=== PATIENT | female | born 1985 | race Caucasian/White ===

== ENCOUNTER 2019-10-02 09:42 | Emergency (ER) | payer MEDICARE ==
[~2019-10-02] VITALS: Ht 175.3 cm; Wt 81.7 kg
[~2019-10-02 09:42] MED LIST: ALPR0.25 PO; CALC200T3 PO; LEVO112T4 PO; OXYC5CAP2 PO
[2019-10-02 09:49] VITALS: BP 130/61
[2019-10-02 11:40] LABS: BASOPHILS # (AUTO) 0.09 x10^3/uL (0-0.1); BASOPHILS % (AUTO) 1 % (0-1); EOSINOPHILS # (AUTO) 0.02 x10^3/uL (0-0.4); EOSINOPHILS % (AUTO) 0 % (1-7); LYMPHOCYTES # (AUTO) 1.17 x10^3/uL (1-3.4); LYMPHOCYTES % (AUTO) 10 % (22-44); MD NO; MEAN CORPUSCULAR HEMOGLOBIN 30.5 pg (27.0-34.8); MEAN CORPUSCULAR VOLUME 92.3 fL (80-100); MEAN PLATELET VOLUME 6.9 fL (7.4-10.4); MONOCYTES # (AUTO) 0.63 x10^3/uL (0.2-0.8); MONOCYTES % (AUTO) 5 % (2-9); NEUTROPHILS # (AUTO) 10.13 x10^3/uL (1.8-6.8); NEUTROPHILS % (AUTO) 84 % (42-75); PLATELET COUNT 324 x10^3/uL (130-400); RED BLOOD COUNT 3.94 x10^6/uL (3.82-5.3)
== END 2019-10-02 12:06 | disposition home or self-care (01) ==
LOC: ED 11:20
DX: R04.0 Epistaxis (principal); Z87.891 Personal history of nicotine dependence
CPT/HCPCS: 36415; 85025; 99283

== ENCOUNTER 2019-10-08 08:57 | Day surgery (SDC) | payer MEDICARE ==
[~2019-10-08] VITALS: Ht 175.3 cm; Wt 80.1 kg
[2019-10-08] MEDS ORDERED: BACITRACIN OINT 500U/GM, 15 GM ONE (09:44)
[2019-10-08] MEDS ORDERED: FLUORESCEIN SODIUM 500 MG/5 ML ONE (09:44)
[2019-10-08] MEDS ORDERED: OXYMETAZOLINE NASAL SPRAY 0.05%, 15ML ONE (09:44)
[2019-10-08] MEDS ORDERED: LIDOCAINE 1%-EPI 1:100K, 20ML ONE (09:44)
[2019-10-08] MEDS ORDERED: EPINEPHRINE TOPICAL SOLN 1 MG/ML, 30ML ONE (09:44)
[2019-10-08] MEDS ORDERED: MIDAZOLAM 1 MG/ML, 2ML ONE (09:51)
[2019-10-08] MEDS ORDERED: CEFAZOLIN 1,000 MG ONE (10:20)
[2019-10-08] MEDS ORDERED: ROCURONIUM 10MG/ML,5ML ONE (10:20)
[2019-10-08] MEDS ORDERED: PROPOFOL 10 MG/ML, 20ML ONE (10:20)
[2019-10-08] MEDS ORDERED: SUCCINYLCHOLINE 20 MG/ML, 10ML ONE (10:20)
[2019-10-08] MEDS ORDERED: ONDANSETRON 2MG/ML, 2ML ONE (10:20)
[2019-10-08] MEDS ORDERED: DEXAMETHASONE 4 MG/ML, 1ML ONE (10:20)
--- NOTE | 2019-10-08 10:22 | NUR ---
pt presents to ED with c/o intermittent nosebleed x 3 weeks, prsent since sinus surgery 3 weeks ago. pt was instructed by ENT [place] to present to ED for admit to OR for repair. pt notes left ear pain 9/10 on arrival. Epitasis present on arrival. PIV placed to right ac by task RN Baldev. Pt seen by MD Duran in ED. After PIV placement, repeat bp was 85/58, HR 100-110s sinus tach. anthestesiologist and [employer] notified of BP recheck and trend. Pt a&o, rsps even and unlabored, present with pt upon transport to OR.
[2019-10-08 10:46] LABS: BASOPHILS # (AUTO) 0.03 x10^3/uL (0-0.1); BASOPHILS % (AUTO) 0 % (0-1); EOSINOPHILS # (AUTO) 0.07 x10^3/uL (0-0.4); EOSINOPHILS % (AUTO) 1 % (1-7); HEMOGRAM NOTE RECHECKED; LYMPHOCYTES # (AUTO) 1.52 x10^3/uL (1-3.4); LYMPHOCYTES % (AUTO) 18 % (22-44); MD NO; MEAN CORPUSCULAR HEMOGLOBIN 31.7 pg (27.0-34.8); MEAN CORPUSCULAR HGB CONC 34.2 g/dL (32.4-35.8); MEAN CORPUSCULAR VOLUME 92.5 fL (80-100); MEAN PLATELET VOLUME 7.1 fL (7.4-10.4); MONOCYTES # (AUTO) 0.51 x10^3/uL (0.2-0.8); MONOCYTES % (AUTO) 6 % (2-9); NEUTROPHILS % (AUTO) 75 % (42-75); PLATELET COUNT 412 x10^3/uL (130-400); RED BLOOD COUNT 2.96 x10^6/uL (3.82-5.3)
[2019-10-08] MEDS ORDERED: MEPERIDINE/PF 25MG/ML,1ML ONE (11:36)
[2019-10-08] MEDS ORDERED: OXYcodone 5 MG/5 ML ORAL.SOL UDC ONE (11:36)
[2019-10-08] MEDS ORDERED: HYDR-3240 PO (11:39)
[2019-10-08] MEDS ORDERED: HYDROmorphone 1 MG/ML, 1ML INJ ONE (11:45)
[2019-10-08] MEDS ORDERED: hydrALAzine 20 MG/ML, 1ML IV PRN (12:00)
[2019-10-08] MEDS ORDERED: ALBUTEROL SULFATE 2.5 MG/3 ML NPPB PRN (12:00)
[2019-10-08] MEDS ORDERED: DIAZEPAM 5 MG/ML, 2ML IV PRN ×2 (12:00)
[2019-10-08] MEDS ORDERED: PROMETHAZINE 25 MG/ML, 1ML IV PRN (12:00)
[2019-10-08] MEDS ORDERED: MEPERIDINE/PF 25MG/0.5ML IVPush PRN (12:00)
[2019-10-08] MEDS ORDERED: METOCLOPRAMIDE 5 MG/ML, 2ML IV PRN (12:00)
[2019-10-08] MEDS ORDERED: HYDROmorphone 1 MG/ML, 1ML INJ IV PRN (12:00)
[2019-10-08] MEDS ORDERED: LABETALOL 5MG/ML, 20ML IV PRN (12:00)
[2019-10-08] MEDS ORDERED: FENTANYL PF 100 MCG/2ML IV PRN (12:00)
[2019-10-08] MEDS ORDERED: ONDANSETRON 2MG/ML, 2ML IVPush PRN ×2 (12:00→14:00)
[2019-10-08] MEDS ORDERED: KETOROLAC 30 MG/1 ML IV PRN (12:00)
[2019-10-08] MEDS ORDERED: OXYcodone 5 MG/5 ML ORAL.SOL UDC PO PRN (12:00)
[2019-10-08 13:24] VITALS: BP 108/77
[2019-10-08] MEDS ORDERED: MORPHINE SULFATE 4 MG/ML, 1ML IVPush PRN (14:00)
[2019-10-08 15:46] VITALS: BP 108/78
[2019-10-08] MEDS ORDERED: FENTANYL PF 100 MCG/2ML ONE (21:27)
== END 2019-10-08 16:55 | disposition home or self-care (01) ==
LOC: OR 09:38 → EDIP 09:39 → UNDOADMIN 09:39 → OR 09:39 → EDSTATUS 09:45 → OR 09:56 → EDIP 12:43 → 4NE 12:43 → UNDODISIN 16:55 → OR 16:55
PROVIDERS: ATTEND Emergency Medicine
DX: R04.0 Epistaxis (principal); E03.9 Hypothyroidism, unspecified; Z88.8 Allergy status to other drugs, medicaments and biological substances; Z91.040 Latex allergy status; Z98.890 Other specified postprocedural states
CPT/HCPCS: 31238; 36415; 85025; 99285; J0330; J0690; J1100; J1170; J2175; J2250; J2405; J2704; J3010; G0378; J3490